=== PATIENT | male | born 1965 | race Caucasian/White ===

== ENCOUNTER 2017-07-13 10:50 | Emergency (ER) | payer OTHER ==
[2017-07-13 11:20] VITALS: BP 197/106
[2017-07-13] MEDS ORDERED: HYDROcodone/APAP 5/325MG 1 TAB TABLET PO ONE (11:30)
[2017-07-13] MEDS ORDERED: DIPHTH,PERTUSS(ACELL),TET TOX 0.5 ML DISP.SYRIN. VAX IM ONE (11:30)
[2017-07-13] MEDS ORDERED: BUPIVACAINE 0.5% 50 ML VIAL. IJ ONE (11:30)
--- NOTE | 2017-07-13 11:47 | RAD ---
Exam: Right fingers radiograph 07/13/2017 at 1132 hours Indication: Right thumb laceration Comparison: None available Technique: 3 views of the first digit are provided. Findings: There is no acute fracture or dislocation. No joint space narrowing. Soft tissue defect along the distal first digit is compatible with soft tissue laceration.. No osseous erosion. Curvilinear radiopaque density projects over the first metacarpophalangeal joint. Bone mineralization is within normal limits. Impression: 1. No acute fracture or dislocation. 2. Soft tissue laceration is present. Curvilinear radiopaque densities project over the first MCP joint. Correlate for possibility of a foreign object versus soft tissue calcification.
--- NOTE | 2017-07-13 11:57 | PHYS DOC ---
Past Medical History Past Medical History: Hypertension Adult General Chief Complaint Chief Complaint: LACERATION/AVULSION HPI HPI Patient is a 52 year old male with history of hypertension who presents today with a laceration on the right ventral thumb that occurred after a Spring cut him on the thumb. Patient is right-handed. Review of Systems Review of Systems Constitutional: Denies fever or chills [] Musculoskeletal: Denies back pain or joint pain [] Integument: Right thumb laceration Neurologic: Denies headache, focal weakness or sensory changes [] Current Medications Current Medications Current Medications Medications (Trade) Dose Ordered Sig/Janette Start Time Stop Time Status Last Admin Dose Admin Acetaminophen/ Hydrocodone Bitart (Lortab 5/325) 2 tab 1X ONCE 07/13/17 11:30 07/13/17 11:31 DC 07/13/17 11:48 2 TAB Bupivacaine HCl (Marcaine 0.5%) 50 ml 1X ONCE 07/13/17 11:30 07/13/17 11:31 DC 07/13/17 11:30 50 ML Diphtheria/ Tetanus/Acell Pertussis (Boostrix) 0.5 ml ONCE ONCE 07/13/17 11:30 07/13/17 11:31 DC 07/13/17 11:47 0.5 ML Allergies Allergies Allergies Coded Allergies Type Severity Reaction Last Updated Verified No Known Drug Allergies 07/13/17 No Physical Exam Physical Exam Constitutional: Well developed, well nourished, no acute distress, non-toxic appearance. [] Skin: Right ventral thumb with a laceration approximately 6 cm long. There is no obvious tendon involvement. Full range of motion to the right thumb including flexion and extension at the PIP and DIP joints. Adequate radial sensation to the right thumb. +2 right radial pulse. Cap refill less than 2 seconds the right thumb. Back: No tenderness, no CVA tenderness. [] Extremities: No tenderness, no cyanosis, no clubbing, ROM intact, no edema. [] Neurologic: Alert and oriented X 3, normal motor function, normal sensory function, no focal deficits noted. [] Psychologic: Affect normal, judgement normal, mood normal. [] Current Patient Data Vital Signs Vital Signs Date Time Temp Pulse Resp B/P (MAP) Pulse Ox O2 Delivery O2 Flow Rate FiO2 07/13/17 11:48 18 07/13/17 11:20 98.7 75 97 Room Air 98.7 EKG EKG [] Radiology/Procedures Radiology/Procedures Indication: Right thumb laceration Procedure: The patient was placed in the appropriate position and anesthesia around the laceration was 0.5% of bupivacaine, the laceration was explored for foreign objects, none was found. The area was then cleaned with 250 ML of normal saline and Betadine. One interrupted suture was placed in the inner aspect of the laceration using 3. 0 Vicryl, external laceration was closed with 16 interrupted sutures using 4. 0 Ethilon. Total repaired wound length: Approximately 6 cm long Other Items:none The patient tolerated the procedure well Complications:none PROCEDURE: FINGER(S) RIGHT Exam: Right fingers radiograph 07/13/2017 at 1132 hours Indication: Right thumb laceration Comparison: None available Technique: 3 views of the first digit are provided. Findings: There is no acute fracture or dislocation. No joint space narrowing. Soft tissue defect along the distal first digit is compatible with soft tissue laceration.. No osseous erosion. Curvilinear radiopaque density projects over the first metacarpophalangeal joint. Bone mineralization is within normal limits. Impression: 1. No acute fracture or dislocation. 2. Soft tissue laceration is present. Curvilinear radiopaque densities project over the first MCP joint. Correlate for possibility of a foreign object versus soft tissue calcification. DICTATED and SIGNED BY: NARAYAN LATIF MD DATE: 07/13/17 1142 CC: TAMIKO WASHINGTON APRN; NON,STAFF; YUMIKO CAMACHO MD ~ Course & Med Decision Making Course & Med Decision Making Pertinent Labs and Imaging studies reviewed. (See chart for details) Patient is in the ED with right thumb laceration. There is no obvious tendon involvement. He was given tetanus in the ED. Laceration was closed by me as noted in procedures. Patient was provided wound care instructions as well as return precautions. Follow-up with his own PCP or the ED in 7-10 days for suture removal. Dragon Disclaimer Dragon Disclaimer This electronic medical record was generated, in whole or in part, using a voice recognition dictation system. Departure Departure Impression: Primary Impression: Laceration of right thumb Disposition: 01 HOME, SELF-CARE Condition: STABLE (she is in the room and) Referrals: YUMIKO CAMACHO MD (PCP) Follow-up with your own doctor in 7-10 days or the emergency room for suture removal Patient Instructions: Laceration Care, Adult Additional Instructions: You were seen for laceration of the right thumb. Keep the area clean and dry. You can shower, do not soak the area. Apply Neosporin to the area twice a day. Complete your oral antibiotics. Do not drive or operate machinery on the pain medicine. Follow-up with your own doctor or the emergency room in 7-10 days for suture removal. Scripts Hydrocodone/Apap 5-325 (NORCO 5-325 TABLET) 1 Each Tablet 1-2 TAB PO Q4-6HRS, #40 TAB Prov: TAMIKO WASHINGTON APRN 07/13/17 Cephalexin (CEPHALEXIN) 500 Mg Tablet 1 TAB PO QID, #40 TAB Prov: TAMIKO WASHINGTON APRN 07/13/17 Problem Qualifiers Primary Impression: Laceration of right thumb Encounter type: initial encounter Damage to nail status: without damage Foreign body presence: without foreign body Qualified Codes: S61.011A - Laceration without foreign body of right thumb without damage to nail, initial encounter TAMIKO WASHINGTON APRN Jul 13, 2017 11:57
[2017-07-13] MEDS ORDERED: CEPH500T PO (13:00)
[2017-07-13] MEDS ORDERED: HYDR-971 PO (13:00)
== END 2017-07-13 13:17 | disposition home or self-care (01) ==
LOC: ER 10:50
DX: S61.011A Laceration without foreign body of right thumb without damage to nail, initial encounter (principal); W45.8XXA Other foreign body or object entering through skin, initial encounter; Y93.89 Activity, other specified; Y92.89 Other specified places as the place of occurrence of the external cause; Y99.8 Other external cause status; I10 Essential (primary) hypertension
CPT/HCPCS: 12032; 73140; 90471; 90715; 99284; J3490